=== PATIENT | male | born 1970 | race African-American/Black ===

== ENCOUNTER 2020-11-06 14:15 | Inpatient (IN) | payer SELFPAY ==
[2020-11-06] MEDS ORDERED: Acetaminophen 500 MG TAB ONE (14:54)
[2020-11-06] MEDS ORDERED: Ondansetron ODT 4 MG TAB ONE (14:54)
[2020-11-06 15:30] LABS: #Basophils 0.1 10x3/uL (0.0-0.2); #Monocytes 0.7 10x3/uL (0.0-1.1); #Neutrophils 10.7 10x3/uL (1.5-8.4); %Basophils 0.4 % (0.0-2.0); %Eosinophils 0.1 % (0.0-6.0); %Monocytes 5.1 % (0.0-10.0); %Neutrophils 80.2 % (40.0-75.0); Hemoglobin 12.2 g/dL (13.5-17.5); Mean Corpuscular HGB CONC 36.7 g/dL (32.0-36.0); Mean Corpuscular Hemoglobin 28.4 pg (27.0-33.0); Mean Corpuscular Volume 77.2 fl (81.2-95.1); Platelet Count 317 10x3/uL (150-450); White Blood Cell (WBC) Count 13.4 10x3/uL (3.5-10.5)
[2020-11-06 15:46] LABS: ALT (SGPT) 11 U/L (8-55); AST (SGOT) 21 U/L (5-34); Albumin 3.6 g/dL (3.5-5.0); Alkaline Phosphatase 52 U/L (40-110); Anion Gap 24 mmol/L (10-20); BUN (Urea Nitrogen) 23 mg/dL (8.4-25.7); Bilirubin, Total 1.4 mg/dL (0.2-1.2); Calc. Creatinine Clearance 0 mL/min (70-130); Calcium 9.4 mg/dL (7.8-10.44); Carbon Dioxide 13 mmol/L (22-29); Chloride 75 mmol/L (98-107); Globulin 3.2 g/dL (2.4-3.5); Glucose 213 mg/dL (70-105); Potassium 5.8 mmol/L (3.5-5.1); Protein, Total 6.8 g/dL (6.0-8.3)
[2020-11-06 15:47] LABS: Sodium 106 mmol/L (136-145)
[2020-11-06] MEDS ORDERED: Senokot S 8.6-50 MG TAB PO PRN (17:27)
[2020-11-06] MEDS ORDERED: Ondansetron PF 4 MG/2 ML Vial IVP PRN (17:27)
[2020-11-06 18:03] LABS: CRP (Inflammatory) 9.26 mg/dL (= or < 0.5); Uric Acid 7.7 mg/dL (3.5-7.2)
[2020-11-06 18:05] LABS: INR-International Normal Ratio 1.1; Prothrombin Time 12.1 sec (9.5-12.1)
[2020-11-06] MEDS ORDERED: Dextrose 50% Abboject 50 ML SYRINGE SLOW IVP PRN ×2 (18:13→18:14)
[2020-11-06] MEDS ORDERED: HumaLOG 300 UNITS/3 ML VIAL SC PRN (18:13)
[2020-11-06] MEDS ORDERED: Folic Acid 1 MG TAB PO SCH (18:15)
[2020-11-06] MEDS ORDERED: hydrALAZINE 20 MG/ML VIAL SLOW IVP PRN (18:25)
[2020-11-06] MEDS ORDERED: Thiamine 100 MG TAB PO SCH (18:45)
[2020-11-06 19:10] LABS: SARS-CoV-2 NAA Rapid Test Not Detected (NotDetected)
[2020-11-06 20:01] LABS: Actual Bicarbonate (HCO3a) 14.3 mEq/L (22-28); Base Excess (BEa) -6.3 mEq/L (-2.0 to +3.0); CO2 Tension 18.3 mmHg (35.0-45.0); Calcium, Ionized (arterial) 1.12 mmol/L (1.12-1.30); Carboxyhemoglobin (COHb) 0.3 gm% (0.0-3.0); Hemoglobin (Hb) 12.5 g/dL (14.0-18.0); O2 Tension (PaO2), arterial 86.6 mmHg (80.0-100.0); Potassium - ABG Lab 5.1 mmol/L (3.70-5.30); Puncture Site LBA; pH, Arterial 7.51 (7.35-7.45)
[2020-11-06 20:04] LABS: ALV-art Gradient 40.255 mmHg (0-20)
[2020-11-06] MEDS ORDERED: Sodium Chloride 3% 100 ML IVPB SCH (20:15)
[2020-11-06 21:01] LABS: Anion Gap 25 mmol/L (10-20); BUN (Urea Nitrogen) 24 mg/dL (8.4-25.7); Calc. Creatinine Clearance 63 mL/min (70-130); Calcium 9.6 mg/dL (7.8-10.44); Carbon Dioxide 11 mmol/L (22-29); Chloride 78 mmol/L (98-107); Glucose 191 mg/dL (70-105); Potassium 5.3 mmol/L (3.5-5.1)
[2020-11-06 21:27] LABS: Sodium 109 mmol/L (136-145)
[2020-11-06] MEDS ORDERED: Sodium Chloride 0.9% 250 ML IV SCH (22:00)
[2020-11-06 22:10] LABS: Anion Gap 26 mmol/L (10-20); BUN (Urea Nitrogen) 24 mg/dL (8.4-25.7); Calc. Creatinine Clearance 65 mL/min (70-130); Calcium 9.5 mg/dL (7.8-10.44); Carbon Dioxide 10 mmol/L (22-29); Chloride 77 mmol/L (98-107); Glucose 187 mg/dL (70-105); Potassium 5.1 mmol/L (3.5-5.1)
[2020-11-06 22:23] LABS: Sodium 108 mmol/L (136-145)
[2020-11-06] MEDS: Lorazepam 2 MG/ML VIAL SLOW IVP PRN (22:23)
[2020-11-06] MEDS ORDERED: Sodium Bicarbonate Tab 325 MG TAB PO SCH (23:00)
[2020-11-06 23:01] LABS: Bilirubin Neg (Negative); Blood, Urine Negative (Negative); Clarity Clear (Clear); Glucose, Urine (Dipstick) Normal (Negative); Ketone, Urine 15 mg/dL (Negative); Leukocyte 25 (Negative); Nitrite Negative (Negative); Protein, Urine (Dipstick) Negative (Neg-Trace)
[2020-11-06 23:33] LABS: Bacteria/HPF Rare-Few HPF (None Seen); RBC/HPF 0-3 HPF (0-3); WBC/HPF 0-3 HPF (0-3)
[2020-11-06 23:36] LABS: Mucous/LPF 2+ LPF (<2+)
[2020-11-07 00:49] LABS: Anion Gap 22 mmol/L (10-20); BUN (Urea Nitrogen) 27 mg/dL (8.4-25.7); Calc. Creatinine Clearance 62 mL/min (70-130); Calcium 9.4 mg/dL (7.8-10.44); Carbon Dioxide 13 mmol/L (22-29); Chloride 80 mmol/L (98-107); Glucose 121 mg/dL (70-105); Potassium 4.9 mmol/L (3.5-5.1)
[2020-11-07 00:56] LABS: Critical Call Chemistry INCREASING; Sodium 110 mmol/L (136-145)
[2020-11-07 04:49] LABS: #Monocytes 0.7 10x3/uL (0.0-1.1); #Neutrophils 8.8 10x3/uL (1.5-8.4); %Basophils 0.3 % (0.0-2.0); %Eosinophils 0.2 % (0.0-6.0); %Lymphocytes 17.4 % (18.0-47.0); %Monocytes 5.7 % (0.0-10.0); %Neutrophils 75.2 % (40.0-75.0); Mean Corpuscular HGB CONC 35.9 g/dL (32.0-36.0); Mean Corpuscular Hemoglobin 28.5 pg (27.0-33.0); Mean Corpuscular Volume 79.3 fl (81.2-95.1); Mean Platelet Volume 9.5 fl (7.4-10.4); Platelet Count 273 10x3/uL (150-450); RBC Distribution Width 14.7 % (11.5-14.5); Red Blood Cell (RBC) Count 4.21 10x6/uL (4.32-5.72); White Blood Cell (WBC) Count 11.7 10x3/uL (3.5-10.5)
[2020-11-07 05:10] LABS: ALT (SGPT) 10 U/L (8-55); AST (SGOT) 24 U/L (5-34); Albumin 3.7 g/dL (3.5-5.0); Alkaline Phosphatase 49 U/L (40-110); Anion Gap 21 mmol/L (10-20); BUN (Urea Nitrogen) 28 mg/dL (8.4-25.7); Bilirubin, Direct 0.5 mg/dL (0.1-0.3); Bilirubin, Total 1.1 mg/dL (0.2-1.2); CRP (Inflammatory) 9.21 mg/dL (= or < 0.5); Calc. Creatinine Clearance 69 mL/min (70-130); Calcium 9.7 mg/dL (7.8-10.44); Carbon Dioxide 16 mmol/L (22-29); Cardiac Risk 3.6 (Less than 4.5); Chloride 79 mmol/L (98-107); Cholesterol 156 mg/dl (< 200 Desired); Globulin 3.8 g/dL (2.4-3.5); Glucose 89 mg/dL (70-105); HDL Cholesterol 43 mg/dL (>60 Neg Risk); LDL Cholesterol, Calculated 89 mg/dL; Lipase 19 U/L (8-78); Phosphorus 5.6 mg/dL (2.3-4.7); Potassium 4.6 mmol/L (3.5-5.1); Protein, Total 7.5 g/dL (6.0-8.3); Triglycerides 118 mg/dL (Less than 150)
[2020-11-07 05:16] LABS: Prothrombin Time 11.5 sec (9.5-12.1)
[2020-11-07 05:23] LABS: Sodium 111 mmol/L (136-145)
[2020-11-07 05:33] LABS: Thyroid Stimulating Hormone 2.7571 uIU/mL (0.35-4.94)
[2020-11-07] MEDS: Folic Acid 1 MG TAB PO SCH (08:58)
[2020-11-07] MEDS: Sodium Bicarbonate Tab 325 MG TAB PO SCH ×3 (08:59→20:19)
[2020-11-07] MEDS: Thiamine 100 MG TAB PO SCH (09:00)
[2020-11-07 10:58] LABS: Anion Gap 19 mmol/L (10-20); BUN (Urea Nitrogen) 28 mg/dL (8.4-25.7); Calc. Creatinine Clearance 86 mL/min (70-130); Calcium 9.3 mg/dL (7.8-10.44); Carbon Dioxide 17 mmol/L (22-29); Chloride 81 mmol/L (98-107); Glucose 74 mg/dL (70-105); Potassium 4.4 mmol/L (3.5-5.1)
[2020-11-07 11:10] LABS: Sodium 113 mmol/L (136-145)
[2020-11-07 14:56] LABS: Anion Gap 17 mmol/L (10-20); BUN (Urea Nitrogen) 27 mg/dL (8.4-25.7); Calc. Creatinine Clearance 98 mL/min (70-130); Calcium 9.1 mg/dL (7.8-10.44); Carbon Dioxide 18 mmol/L (22-29); Chloride 80 mmol/L (98-107); Glucose 78 mg/dL (70-105); Potassium 4.2 mmol/L (3.5-5.1)
[2020-11-07 15:09] LABS: Sodium 111 mmol/L (136-145)
[2020-11-07 18:30] LABS: Anion Gap 16 mmol/L (10-20); BUN (Urea Nitrogen) 25 mg/dL (8.4-25.7); Calc. Creatinine Clearance 112 mL/min (70-130); Calcium 8.9 mg/dL (7.8-10.44); Carbon Dioxide 20 mmol/L (22-29); Chloride 79 mmol/L (98-107); Glucose 77 mg/dL (70-105); Potassium 3.9 mmol/L (3.5-5.1)
[2020-11-07 18:48] LABS: Sodium 111 mmol/L (136-145)
[2020-11-07 22:30] LABS: Anion Gap 16 mmol/L (10-20); BUN (Urea Nitrogen) 23 mg/dL (8.4-25.7); Calc. Creatinine Clearance 119 mL/min (70-130); Calcium 8.8 mg/dL (7.8-10.44); Carbon Dioxide 20 mmol/L (22-29); Chloride 80 mmol/L (98-107); Glucose 107 mg/dL (70-105); Potassium 3.5 mmol/L (3.5-5.1)
[2020-11-07 23:22] LABS: Sodium 112 mmol/L (136-145)
[2020-11-08 04:36] LABS: #Eosinphils 0.1 10x3/uL (0.0-0.5); #Monocytes 0.5 10x3/uL (0.0-1.1); #Neutrophils 4.9 10x3/uL (1.5-8.4); %Basophils 0.3 % (0.0-2.0); %Eosinophils 0.8 % (0.0-6.0); %Monocytes 6.2 % (0.0-10.0); %Neutrophils 67.5 % (40.0-75.0); Hemoglobin 8.7 g/dL (13.5-17.5); Mean Corpuscular HGB CONC 35.8 g/dL (32.0-36.0); Mean Corpuscular Hemoglobin 28.5 pg (27.0-33.0); Mean Corpuscular Volume 79.7 fl (81.2-95.1); Mean Platelet Volume 9.2 fl (7.4-10.4); Platelet Count 226 10x3/uL (150-450); RBC Distribution Width 14.3 % (11.5-14.5); Red Blood Cell (RBC) Count 3.05 10x6/uL (4.32-5.72); White Blood Cell (WBC) Count 7.2 10x3/uL (3.5-10.5)
[2020-11-08 04:38] LABS: Anion Gap 15 mmol/L (10-20); BUN (Urea Nitrogen) 19 mg/dL (8.4-25.7); Calc. Creatinine Clearance 134 mL/min (70-130); Calcium 8.8 mg/dL (7.8-10.44); Carbon Dioxide 21 mmol/L (22-29); Chloride 82 mmol/L (98-107); Glucose 85 mg/dL (70-105); Potassium 3.6 mmol/L (3.5-5.1)
[2020-11-08 04:45] LABS: Sodium 114 mmol/L (136-145)
[2020-11-08 07:27] LABS: Anion Gap 15 mmol/L (10-20); BUN (Urea Nitrogen) 17 mg/dL (8.4-25.7); Calc. Creatinine Clearance 149 mL/min (70-130); Calcium 8.6 mg/dL (7.8-10.44); Carbon Dioxide 20 mmol/L (22-29); Chloride 84 mmol/L (98-107); Glucose 76 mg/dL (70-105); Potassium 3.6 mmol/L (3.5-5.1)
[2020-11-08 07:43] LABS: Sodium 115 mmol/L (136-145)
[2020-11-08] MEDS: Folic Acid 1 MG TAB PO SCH (08:43)
[2020-11-08] MEDS: Thiamine 100 MG TAB PO SCH (08:43)
[2020-11-08] MEDS: Sodium Bicarbonate Tab 325 MG TAB PO SCH ×3 (08:43→20:32)
[2020-11-08 13:39] LABS: Anion Gap 14 mmol/L (10-20); BUN (Urea Nitrogen) 15 mg/dL (8.4-25.7); Calc. Creatinine Clearance 156 mL/min (70-130); Calcium 8.9 mg/dL (7.8-10.44); Carbon Dioxide 23 mmol/L (22-29); Chloride 85 mmol/L (98-107); Glucose 96 mg/dL (70-105); Potassium 3.6 mmol/L (3.5-5.1)
[2020-11-08 13:42] LABS: Sodium 118 mmol/L (136-145)
[2020-11-08 16:50] LABS: Anion Gap 16 mmol/L (10-20); BUN (Urea Nitrogen) 14 mg/dL (8.4-25.7); Calc. Creatinine Clearance 153 mL/min (70-130); Calcium 8.8 mg/dL (7.8-10.44); Carbon Dioxide 21 mmol/L (22-29); Chloride 85 mmol/L (98-107); Glucose 95 mg/dL (70-105); Potassium 3.7 mmol/L (3.5-5.1)
[2020-11-08 16:58] LABS: Sodium 118 mmol/L (136-145)
[2020-11-08] MEDS: Acetaminophen 500 MG TAB PO PRN (17:06)
[2020-11-08 21:09] LABS: Anion Gap 14 mmol/L (10-20); BUN (Urea Nitrogen) 12 mg/dL (8.4-25.7); Calc. Creatinine Clearance 158 mL/min (70-130); Calcium 8.9 mg/dL (7.8-10.44); Carbon Dioxide 24 mmol/L (22-29); Chloride 86 mmol/L (98-107); Glucose 99 mg/dL (70-105); Potassium 3.7 mmol/L (3.5-5.1); Sodium 120 mmol/L (136-145)
[2020-11-09 01:16] LABS: Anion Gap 14 mmol/L (10-20); BUN (Urea Nitrogen) 11 mg/dL (8.4-25.7); Calc. Creatinine Clearance 157 mL/min (70-130); Calcium 8.9 mg/dL (7.8-10.44); Carbon Dioxide 23 mmol/L (22-29); Chloride 88 mmol/L (98-107); Glucose 101 mg/dL (70-105); Potassium 3.6 mmol/L (3.5-5.1); Sodium 121 mmol/L (136-145)
[2020-11-09 04:32] LABS: #Eosinphils 0.1 10x3/uL (0.0-0.5); #Monocytes 0.5 10x3/uL (0.0-1.1); #Neutrophils 3.5 10x3/uL (1.5-8.4); %Basophils 0.5 % (0.0-2.0); %Eosinophils 1.5 % (0.0-6.0); %Lymphocytes 29.7 % (18.0-47.0); %Monocytes 7.7 % (0.0-10.0); %Neutrophils 57.6 % (40.0-75.0); Hemoglobin 8.2 g/dL (13.5-17.5); Mean Corpuscular Hemoglobin 29.1 pg (27.0-33.0); Mean Corpuscular Volume 80.9 fl (81.2-95.1); Mean Platelet Volume 8.8 fl (7.4-10.4); Platelet Count 248 10x3/uL (150-450); RBC Distribution Width 14.3 % (11.5-14.5); Red Blood Cell (RBC) Count 2.82 10x6/uL (4.32-5.72); White Blood Cell (WBC) Count 6.1 10x3/uL (3.5-10.5)
[2020-11-09 04:46] LABS: Anion Gap 13 mmol/L (10-20); BUN (Urea Nitrogen) 11 mg/dL (8.4-25.7); Calc. Creatinine Clearance 177 mL/min (70-130); Calcium 8.6 mg/dL (7.8-10.44); Carbon Dioxide 23 mmol/L (22-29); Chloride 88 mmol/L (98-107); Glucose 90 mg/dL (70-105); Potassium 3.3 mmol/L (3.5-5.1); Sodium 121 mmol/L (136-145)
[2020-11-09] MEDS: Acetaminophen 500 MG TAB PO PRN ×3 (06:01→18:03)
[2020-11-09] MEDS: Sodium Bicarbonate Tab 325 MG TAB PO SCH ×3 (08:02→20:16)
[2020-11-09] MEDS: Folic Acid 1 MG TAB PO SCH (08:02)
[2020-11-09] MEDS: Thiamine 100 MG TAB PO SCH (08:02)
[2020-11-09 09:00] LABS: Anion Gap 15 mmol/L (10-20); BUN (Urea Nitrogen) 9 mg/dL (8.4-25.7); Calc. Creatinine Clearance 171 mL/min (70-130); Carbon Dioxide 22 mmol/L (22-29); Chloride 89 mmol/L (98-107); Glucose 98 mg/dL (70-105); Potassium 3.4 mmol/L (3.5-5.1); Sodium 123 mmol/L (136-145)
[2020-11-09 12:07] LABS: Anion Gap 14 mmol/L (10-20); BUN (Urea Nitrogen) 10 mg/dL (8.4-25.7); Calc. Creatinine Clearance 159 mL/min (70-130); Carbon Dioxide 23 mmol/L (22-29); Chloride 89 mmol/L (98-107); Glucose 97 mg/dL (70-105); Potassium 3.2 mmol/L (3.5-5.1); Sodium 123 mmol/L (136-145)
[2020-11-09] MEDS ORDERED: Potassium Chloride 20 MEQ TAB PO SCH (13:15)
[2020-11-09 16:38] LABS: Anion Gap 16 mmol/L (10-20); BUN (Urea Nitrogen) 11 mg/dL (8.4-25.7); Calc. Creatinine Clearance 164 mL/min (70-130); Calcium 8.9 mg/dL (7.8-10.44); Carbon Dioxide 22 mmol/L (22-29); Chloride 90 mmol/L (98-107); Glucose 80 mg/dL (70-105); Potassium 3.6 mmol/L (3.5-5.1); Sodium 124 mmol/L (136-145)
[2020-11-09 21:32] LABS: Anion Gap 15 mmol/L (10-20); BUN (Urea Nitrogen) 10 mg/dL (8.4-25.7); Calc. Creatinine Clearance 146 mL/min (70-130); Calcium 8.7 mg/dL (7.8-10.44); Carbon Dioxide 24 mmol/L (22-29); Chloride 91 mmol/L (98-107); Glucose 116 mg/dL (70-105); Potassium 3.5 mmol/L (3.5-5.1); Sodium 126 mmol/L (136-145)
[2020-11-10] MEDS ORDERED: Melatonin 3 MG TAB PO SCH (01:15)
[2020-11-10 05:56] LABS: Anion Gap 18 mmol/L (10-20); BUN (Urea Nitrogen) 8 mg/dL (8.4-25.7); Calc. Creatinine Clearance 161 mL/min (70-130); Calcium 9.2 mg/dL (7.8-10.44); Carbon Dioxide 21 mmol/L (22-29); Chloride 92 mmol/L (98-107); Glucose 89 mg/dL (70-105); Potassium 3.5 mmol/L (3.5-5.1); Sodium 127 mmol/L (136-145)
[2020-11-10] MEDS: Acetaminophen 500 MG TAB PO PRN ×2 (06:05→22:49)
[2020-11-10 06:18] LABS: Hemoglobin 8.8 g/dL (13.5-17.5); Mean Corpuscular HGB CONC 34.9 g/dL (32.0-36.0); Mean Corpuscular Hemoglobin 28.6 pg (27.0-33.0); Mean Corpuscular Volume 81.8 fl (81.2-95.1); Mean Platelet Volume 8.6 fl (7.4-10.4); Platelet Count 300 10x3/uL (150-450); RBC Distribution Width 14.8 % (11.5-14.5); Red Blood Cell (RBC) Count 3.08 10x6/uL (4.32-5.72); White Blood Cell (WBC) Count 7.9 10x3/uL (3.5-10.5)
[2020-11-10 06:55] LABS: Band 6 % (5-11); Eosinophils 1 % (0-10); Lymphocytes 21 % (21-51); Metamyelocyte 4 % (0-0); Monocytes 3 % (0-10); Myelocyte 2 % (0-0); Neutrophil 60 % (42-75); Reactive Lymphocytes 2 % (0-10)
[2020-11-10 06:56] LABS: Anisocytosis SLIGHT = 6-15 cells (100X) (0-5/hpf)
[2020-11-10 06:57] LABS: Hypochromia SLIGHT = 6-15 cells (100X) (0-5/hpf); Microcytosis MODERATE=15-30 cells (100X) (0-5/hpf); Platelet Morphology Comment Appears Adequate
[2020-11-10 06:58] LABS: MDiff Complete? YES; Manual Diff?? YES; Small Platelets SLIGHT
[2020-11-10] MEDS: Lorazepam 2 MG/ML VIAL SLOW IVP PRN (10:05)
[2020-11-10] MEDS: Folic Acid 1 MG TAB PO SCH (18:42)
[2020-11-10] MEDS: Sodium Bicarbonate Tab 325 MG TAB PO SCH ×3 (18:42→21:43)
[2020-11-10] MEDS: Thiamine 100 MG TAB PO SCH (18:43)
[2020-11-11 06:57] LABS: Anion Gap 15 mmol/L (10-20); BUN (Urea Nitrogen) 7 mg/dL (8.4-25.7); Calc. Creatinine Clearance 167 mL/min (70-130); Calcium 9.4 mg/dL (7.8-10.44); Carbon Dioxide 22 mmol/L (22-29); Chloride 94 mmol/L (98-107); Glucose 85 mg/dL (70-105); Potassium 3.3 mmol/L (3.5-5.1); Sodium 128 mmol/L (136-145)
[2020-11-11 07:25] LABS: Hemoglobin 8.7 g/dL (13.5-17.5); Mean Corpuscular Hemoglobin 27.9 pg (27.0-33.0); Mean Corpuscular Volume 82.1 fl (81.2-95.1); Platelet Count 352 10x3/uL (150-450); RBC Distribution Width 15.9 % (11.5-14.5); Red Blood Cell (RBC) Count 3.12 10x6/uL (4.32-5.72); White Blood Cell (WBC) Count 8.6 10x3/uL (3.5-10.5)
[2020-11-11 07:27] LABS: MDiff Complete? YES
[2020-11-11 08:08] LABS: Band 1 % (5-11); Eosinophils 1 % (0-10); Lymphocytes 34 % (21-51); Monocytes 7 % (0-10); Neutrophil 57 % (42-75)
[2020-11-11 08:09] LABS: Platelet Morphology Comment Appears Adequate
[2020-11-11] MEDS ORDERED: Potassium Chloride 20 MEQ TAB PO SCH (08:30)
[2020-11-11] MEDS: Acetaminophen 500 MG TAB PO PRN ×3 (08:39→21:24)
[2020-11-11] MEDS: Folic Acid 1 MG TAB PO SCH (08:40)
[2020-11-11] MEDS: Sodium Bicarbonate Tab 325 MG TAB PO SCH ×3 (08:40→21:23)
[2020-11-11] MEDS: Thiamine 100 MG TAB PO SCH (08:40)
[2020-11-11 13:41] LABS: Anion Gap 15 mmol/L (10-20); BUN (Urea Nitrogen) 7 mg/dL (8.4-25.7); Calc. Creatinine Clearance 146 mL/min (70-130); Calcium 9.5 mg/dL (7.8-10.44); Carbon Dioxide 24 mmol/L (22-29); Chloride 92 mmol/L (98-107); Glucose 110 mg/dL (70-105); Potassium 3.4 mmol/L (3.5-5.1); Sodium 128 mmol/L (136-145)
[2020-11-11 17:37] LABS: Anion Gap 14 mmol/L (10-20); BUN (Urea Nitrogen) 8 mg/dL (8.4-25.7); Calc. Creatinine Clearance 150 mL/min (70-130); Carbon Dioxide 22 mmol/L (22-29); Chloride 96 mmol/L (98-107); Glucose 99 mg/dL (70-105); Potassium 3.8 mmol/L (3.5-5.1); Sodium 128 mmol/L (136-145)
[2020-11-11 21:09] LABS: Anion Gap 14 mmol/L (10-20); BUN (Urea Nitrogen) 8 mg/dL (8.4-25.7); Calc. Creatinine Clearance 155 mL/min (70-130); Carbon Dioxide 23 mmol/L (22-29); Chloride 97 mmol/L (98-107); Glucose 96 mg/dL (70-105); Potassium 3.9 mmol/L (3.5-5.1); Sodium 130 mmol/L (136-145)
[2020-11-12 05:34] LABS: #Eosinphils 0.1 10x3/uL (0.0-0.5); #Monocytes 0.6 10x3/uL (0.0-1.1); #Neutrophils 3.8 10x3/uL (1.5-8.4); %Basophils 0.5 % (0.0-2.0); %Eosinophils 0.8 % (0.0-6.0); %Monocytes 10.4 % (0.0-10.0); %Neutrophils 63.5 % (40.0-75.0); Mean Corpuscular HGB CONC 34.6 g/dL (32.0-36.0); Mean Corpuscular Hemoglobin 28.4 pg (27.0-33.0); Mean Corpuscular Volume 81.9 fl (81.2-95.1); Mean Platelet Volume 8.5 fl (7.4-10.4); Platelet Count 277 10x3/uL (150-450); Red Blood Cell (RBC) Count 2.82 10x6/uL (4.32-5.72); White Blood Cell (WBC) Count 6.1 10x3/uL (3.5-10.5)
[2020-11-12 05:49] LABS: Anion Gap 16 mmol/L (10-20); BUN (Urea Nitrogen) 7 mg/dL (8.4-25.7); Calc. Creatinine Clearance 164 mL/min (70-130); Calcium 9.1 mg/dL (7.8-10.44); Carbon Dioxide 21 mmol/L (22-29); Chloride 98 mmol/L (98-107); Glucose 90 mg/dL (70-105); Potassium 3.6 mmol/L (3.5-5.1); Sodium 131 mmol/L (136-145)
[2020-11-12 05:56] VITALS: BMI 28.5
[2020-11-12] MEDS: Acetaminophen 500 MG TAB PO PRN ×3 (08:36→20:24)
[2020-11-12] MEDS: Sodium Bicarbonate Tab 325 MG TAB PO SCH ×3 (08:36→20:23)
[2020-11-12] MEDS: Thiamine 100 MG TAB PO SCH (08:37)
[2020-11-12] MEDS: Folic Acid 1 MG TAB PO SCH (08:37)
[2020-11-12] MEDS: Lorazepam 2 MG/ML VIAL SLOW IVP PRN (20:25)
[2020-11-13] MEDS: Acetaminophen 500 MG TAB PO PRN ×3 (01:58→15:43)
[2020-11-13 06:24] LABS: Anion Gap 14 mmol/L (10-20); BUN (Urea Nitrogen) 6 mg/dL (8.4-25.7); Calc. Creatinine Clearance 172 mL/min (70-130); Calcium 8.9 mg/dL (7.8-10.44); Carbon Dioxide 21 mmol/L (22-29); Chloride 98 mmol/L (98-107); Glucose 105 mg/dL (70-105); Potassium 3.4 mmol/L (3.5-5.1); Sodium 130 mmol/L (136-145)
[2020-11-13] MEDS: Thiamine 100 MG TAB PO SCH (09:11)
[2020-11-13] MEDS: Sodium Bicarbonate Tab 325 MG TAB PO SCH ×2 (09:11→15:43)
[2020-11-13] MEDS: Folic Acid 1 MG TAB PO SCH (09:11)
[2020-11-13 15:50] VITALS: BP 178/85; TEMP 99.3
== END 2020-11-13 16:00 | disposition home or self-care (01) | DRG 643 ==
LOC: CSHERS 14:15 → CSHICU 18:38 → CSHTELE 11-09 16:19
PROVIDERS: ADMIT Family Medicine; ATTEND Hospitalist
DX: E22.2 Syndrome of inappropriate secretion of antidiuretic hormone (principal); E43 Unspecified severe protein-calorie malnutrition; N17.9 Acute kidney failure, unspecified; R18.8 Other ascites; E87.2 Acidosis; K70.9 Alcoholic liver disease, unspecified; Z20.822 Contact with and (suspected) exposure to COVID-19; I10 Essential (primary) hypertension; M54.9 Dorsalgia, unspecified; E87.5 Hyperkalemia; F10.10 Alcohol abuse, uncomplicated; Z79.899 Other long term (current) drug therapy; Z87.820 Personal history of traumatic brain injury; Z68.28 Body mass index [BMI] 28.0-28.9, adult; G89.29 Other chronic pain; E86.0 Dehydration; R14.0 Abdominal distension (gaseous); E87.6 Hypokalemia
CPT/HCPCS: 0240U; 36415; 36416; 36600; 71045; 76705; 80048; 80053; 80061; 80076; 81003; 81015; 82533; 82607; 82746; 82805; 83036; 83605; 83690; 83735; 83880; 83930; 83935; 84100; 84300; 84443; 84484; 84550; 85025; 85610; 86140; 93005; 93306; 94760; J1610; J1815; J2060; J2597; Q0162

== ENCOUNTER 2020-11-19 19:01 | Inpatient (IN) | payer SELFPAY ==
[2020-11-19] MEDS ORDERED: Labetalol HCl 100 MG/20 ML VIAL ONE (19:40)
[2020-11-19 19:47] LABS: #Eosinphils 0.1 10x3/uL (0.0-0.5); #Monocytes 0.6 10x3/uL (0.0-1.1); #Neutrophils 8.2 10x3/uL (1.5-8.4); %Basophils 0.3 % (0.0-2.0); %Eosinophils 0.6 % (0.0-6.0); %Lymphocytes 16.8 % (18.0-47.0); %Monocytes 5.1 % (0.0-10.0); %Neutrophils 76.7 % (40.0-75.0); Hemoglobin 10.4 g/dL (13.5-17.5); Mean Corpuscular HGB CONC 34.8 g/dL (32.0-36.0); Mean Corpuscular Hemoglobin 27.7 pg (27.0-33.0); Mean Corpuscular Volume 79.5 fl (81.2-95.1); Mean Platelet Volume 8.7 fl (7.4-10.4); Platelet Count 396 10x3/uL (150-450); RBC Distribution Width 15.1 % (11.5-14.5); Red Blood Cell (RBC) Count 3.76 10x6/uL (4.32-5.72); White Blood Cell (WBC) Count 10.7 10x3/uL (3.5-10.5)
[2020-11-19 19:55] LABS: Acetaminophen Less than 6.0 mcg/mL (10.0-30.0); Alcohol Less than 10 mg/dL (Less than 10); Salicylate Less than 8.0 mg/dL (15.0-30.0)
[2020-11-19 19:57] LABS: ALT (SGPT) 18 U/L (8-55); AST (SGOT) 21 U/L (5-34); Albumin 4.1 g/dL (3.5-5.0); Alkaline Phosphatase 56 U/L (40-110); Anion Gap 17 mmol/L (10-20); BUN (Urea Nitrogen) 5 mg/dL (8.4-25.7); Bilirubin, Total 0.9 mg/dL (0.2-1.2); Calc. Creatinine Clearance 0 mL/min (70-130); Calcium 9.7 mg/dL (7.8-10.44); Carbon Dioxide 19 mmol/L (22-29); Chloride 88 mmol/L (98-107); Globulin 4.1 g/dL (2.4-3.5); Glucose 105 mg/dL (70-105); Lipase 25 U/L (8-78); Potassium 3.4 mmol/L (3.5-5.1); Protein, Total 8.2 g/dL (6.0-8.3); Sodium 121 mmol/L (136-145)
[2020-11-19] MEDS ORDERED: Ondansetron PF 4 MG/2 ML Vial IVP PRN (20:37)
[2020-11-19] MEDS ORDERED: Calcium Carbonate 500 MG ChewTAB PO PRN (20:37)
[2020-11-19] MEDS ORDERED: Potassium Chloride 20 MEQ TAB PO SCH (20:45)
[2020-11-19 21:00] LABS: Bilirubin 1+ (Negative); Blood, Urine Negative (Negative); Clarity Clear (Clear); Glucose, Urine (Dipstick) Normal (Negative); Ketone, Urine 50 mg/dL (Negative); Leukocyte 25 (Negative); Nitrite Negative (Negative); Protein, Urine (Dipstick) 30 mg/dl (Neg-Trace)
[2020-11-19 21:08] LABS: Amphetamine Not Detected (NotDetected); Barbiturates Screen Not Detected (NotDetected); Benzodiazepine Screen Not Detected (NotDetected); Cocaine Metabolite Screen Not Detected (NotDetected); Methadone Not Detected (NotDetected); Methamphetamine Not Detected (NotDetected); Opiate Screen Detected (NotDetected); Oxycodone Screen Not Detected (NotDetected); Phencyclidine (PCP) Not Detected (NotDetected); THC/Cannabinoid Screen Not Detected (NotDetected); Tricyclic Screen Not Detected (NotDetected)
[2020-11-19 21:11] LABS: Bacteria/HPF Rare-Few HPF (None Seen); Mucous/LPF Few LPF (<2+); RBC/HPF 0-3 HPF (0-3); Transitional Epithelial 0-3 HPF (None Seen); WBC/HPF 0-3 HPF (0-3)
[2020-11-19 23:11] VITALS: BMI 26.5
[2020-11-19 23:33] LABS: Anion Gap 16 mmol/L (10-20); BUN (Urea Nitrogen) 5 mg/dL (8.4-25.7); Calc. Creatinine Clearance 152 mL/min (70-130); Calcium 9.3 mg/dL (7.8-10.44); Carbon Dioxide 18 mmol/L (22-29); Chloride 91 mmol/L (98-107); Glucose 99 mg/dL (70-105); Potassium 3.2 mmol/L (3.5-5.1); Sodium 122 mmol/L (136-145)
[2020-11-20] MEDS: Sodium Chloride 1 GM TAB PO SCH ×4 (01:12→21:21)
[2020-11-20 01:49] LABS: Creatinine, Urine 202.55 mg/dL (63-166)
[2020-11-20] MEDS: Acetaminophen 325 MG TAB PO PRN ×2 (02:25→07:52)
[2020-11-20 04:33] LABS: ALT (SGPT) 15 U/L (8-55); AST (SGOT) 18 U/L (5-34); Albumin 3.8 g/dL (3.5-5.0); Alkaline Phosphatase 52 U/L (40-110); Anion Gap 16 mmol/L (10-20); BUN (Urea Nitrogen) 5 mg/dL (8.4-25.7); Calc. Creatinine Clearance 152 mL/min (70-130); Calcium 9.4 mg/dL (7.8-10.44); Carbon Dioxide 19 mmol/L (22-29); Chloride 91 mmol/L (98-107); Globulin 3.7 g/dL (2.4-3.5); Glucose 97 mg/dL (70-105); Magnesium 1.3 mg/dL (1.6-2.6); Phosphorus 3.4 mg/dL (2.3-4.7); Potassium 3.6 mmol/L (3.5-5.1); Protein, Total 7.5 g/dL (6.0-8.3); Sodium 122 mmol/L (136-145)
[2020-11-20 04:38] LABS: #Eosinphils 0.1 10x3/uL (0.0-0.5); #Monocytes 0.6 10x3/uL (0.0-1.1); #Neutrophils 6.8 10x3/uL (1.5-8.4); %Basophils 0.3 % (0.0-2.0); %Eosinophils 0.8 % (0.0-6.0); %Lymphocytes 19.8 % (18.0-47.0); %Monocytes 6.1 % (0.0-10.0); %Neutrophils 72.6 % (40.0-75.0); Hemoglobin 9.8 g/dL (13.5-17.5); Mean Corpuscular HGB CONC 35.4 g/dL (32.0-36.0); Mean Corpuscular Hemoglobin 28.5 pg (27.0-33.0); Mean Corpuscular Volume 80.5 fl (81.2-95.1); Mean Platelet Volume 9.3 fl (7.4-10.4); Platelet Count 390 10x3/uL (150-450); RBC Distribution Width 15.1 % (11.5-14.5); Red Blood Cell (RBC) Count 3.44 10x6/uL (4.32-5.72); White Blood Cell (WBC) Count 9.3 10x3/uL (3.5-10.5)
[2020-11-20] MEDS ORDERED: Sodium Chloride 0.65% Nasal 44 ML BOT EA NARE PRN (07:27)
[2020-11-20] MEDS ORDERED: Eucerin (Mineral Oil/Petrolatum,White) 30 gm Jar TOP PRN (07:27)
[2020-11-20] MEDS ORDERED: Senokot S 8.6-50 MG TAB PO PRN (07:27)
[2020-11-20] MEDS ORDERED: Loperamide HCl 2 MG CAP PO PRN (07:27)
[2020-11-20] MEDS ORDERED: Cepastat Lozenges 1 LOZ PO PRN (07:27)
[2020-11-20] MEDS ORDERED: hydrALAZINE 20 MG/ML VIAL SLOW IVP PRN (07:27)
[2020-11-20] MEDS ORDERED: Bisacodyl 5 MG TAB PO PRN (07:27)
[2020-11-20] MEDS ORDERED: GUAIFENESIN SF SOLN 200 MG/10 ML UDCUP PO PRN (07:27)
[2020-11-20] MEDS ORDERED: Loratadine 10 MG TAB PO PRN (07:27)
[2020-11-20] MEDS: Amlodipine 5 MG TAB PO SCH (07:51)
[2020-11-20] MEDS: Multivitamin W/ Minerals 1 TAB PO SCH (07:52)
[2020-11-20] MEDS: Thiamine 100 MG TAB PO SCH (07:52)
[2020-11-20] MEDS: Folic Acid 1 MG TAB PO SCH (07:52)
[2020-11-20] MEDS: Enoxaparin Sodium 40 MG/0.4 ML SYRINGE SC SCH (07:52)
[2020-11-20] MEDS ORDERED: Magnesium 2 GM/50 ML 2 GM in Premix Bag 1 BAG IVPB SCH (08:30)
[2020-11-20 09:04] LABS: Sodium 124 mmol/L (136-145)
[2020-11-20] MEDS: Lorazepam 0.5 MG TAB PO PRN (12:53)
[2020-11-20 13:19] LABS: Sodium 123 mmol/L (136-145)
[2020-11-20 17:18] LABS: Sodium 123 mmol/L (136-145)
[2020-11-20 17:42] LABS: SARS-CoV-2 PCR by NAA Not Detected (NotDetected)
[2020-11-20 21:20] LABS: Sodium 123 mmol/L (136-145)
[2020-11-20] MEDS: Zolpidem Tartrate 5 MG TAB PO PRN (21:27)
[2020-11-21 05:46] LABS: ALT (SGPT) 13 U/L (8-55); AST (SGOT) 20 U/L (5-34); Albumin 3.6 g/dL (3.5-5.0); Alkaline Phosphatase 50 U/L (40-110); Anion Gap 14 mmol/L (10-20); BUN (Urea Nitrogen) Less than 4 mg/dL (8.4-25.7); Bilirubin, Total 0.7 mg/dL (0.2-1.2); Calc. Creatinine Clearance 163 mL/min (70-130); Calcium 8.7 mg/dL (7.8-10.44); Carbon Dioxide 18 mmol/L (22-29); Chloride 92 mmol/L (98-107); Globulin 3.4 g/dL (2.4-3.5); Glucose 84 mg/dL (70-105); Magnesium 1.6 mg/dL (1.6-2.6); Potassium 3.3 mmol/L (3.5-5.1); Sodium 121 mmol/L (136-145)
[2020-11-21 05:50] LABS: #Eosinphils 0.1 10x3/uL (0.0-0.5); #Monocytes 0.5 10x3/uL (0.0-1.1); #Neutrophils 5.7 10x3/uL (1.5-8.4); %Basophils 0.2 % (0.0-2.0); %Eosinophils 1.2 % (0.0-6.0); %Lymphocytes 20.7 % (18.0-47.0); %Monocytes 6.7 % (0.0-10.0); %Neutrophils 70.8 % (40.0-75.0); Hemoglobin 8.8 g/dL (13.5-17.5); Mean Corpuscular Hemoglobin 27.8 pg (27.0-33.0); Mean Platelet Volume 8.9 fl (7.4-10.4); Platelet Count 347 10x3/uL (150-450); RBC Distribution Width 14.8 % (11.5-14.5); Red Blood Cell (RBC) Count 3.16 10x6/uL (4.32-5.72); White Blood Cell (WBC) Count 8.1 10x3/uL (3.5-10.5)
[2020-11-21] MEDS: HYDROcodone/Acetaminophen 5/325 mg Tablet PO PRN ×3 (07:36→17:27)
[2020-11-21] MEDS: Amlodipine 5 MG TAB PO SCH (07:36)
[2020-11-21] MEDS: Folic Acid 1 MG TAB PO SCH (07:37)
[2020-11-21] MEDS: Multivitamin W/ Minerals 1 TAB PO SCH (07:37)
[2020-11-21] MEDS: Potassium Chloride 20 MEQ TAB PO SCH ×2 (07:37→15:29)
[2020-11-21] MEDS: Enoxaparin Sodium 40 MG/0.4 ML SYRINGE SC SCH (07:38)
[2020-11-21] MEDS: Lorazepam 0.5 MG TAB PO PRN (07:38)
[2020-11-21] MEDS: Thiamine 100 MG TAB PO SCH (07:38)
[2020-11-21] MEDS: Sodium Chloride 1 GM TAB PO SCH ×3 (07:39→20:40)
[2020-11-21] MEDS ORDERED: Tolvaptan 15 MG TAB PO SCH (10:30)
[2020-11-21] MEDS: Zolpidem Tartrate 5 MG TAB PO PRN (20:40)
[2020-11-22 04:25] LABS: #Eosinphils 0.1 10x3/uL (0.0-0.5); #Monocytes 0.5 10x3/uL (0.0-1.1); #Neutrophils 5.1 10x3/uL (1.5-8.4); %Basophils 0.4 % (0.0-2.0); %Eosinophils 1.2 % (0.0-6.0); %Lymphocytes 21.9 % (18.0-47.0); %Monocytes 6.5 % (0.0-10.0); %Neutrophils 69.5 % (40.0-75.0); Hemoglobin 10.8 g/dL (13.5-17.5); Mean Corpuscular HGB CONC 33.1 g/dL (32.0-36.0); Mean Corpuscular Hemoglobin 27.6 pg (27.0-33.0); Mean Corpuscular Volume 83.4 fl (81.2-95.1); Mean Platelet Volume 8.7 fl (7.4-10.4); Platelet Count 416 10x3/uL (150-450); RBC Distribution Width 15.5 % (11.5-14.5); Red Blood Cell (RBC) Count 3.91 10x6/uL (4.32-5.72); White Blood Cell (WBC) Count 7.4 10x3/uL (3.5-10.5)
[2020-11-22 04:39] LABS: Anion Gap 16 mmol/L (10-20)
[2020-11-22 05:01] LABS: BUN (Urea Nitrogen) 4 mg/dL (8.4-25.7); Calc. Creatinine Clearance 130 mL/min (70-130); Calcium 10.1 mg/dL (7.8-10.44); Carbon Dioxide 18 mmol/L (22-29); Chloride 107 mmol/L (98-107); Glucose 125 mg/dL (70-105); Sodium 137 mmol/L (136-145)
[2020-11-22] MEDS: Folic Acid 1 MG TAB PO SCH (08:56)
[2020-11-22] MEDS: Thiamine 100 MG TAB PO SCH (08:57)
[2020-11-22] MEDS: Enoxaparin Sodium 40 MG/0.4 ML SYRINGE SC SCH (08:57)
[2020-11-22] MEDS: Multivitamin W/ Minerals 1 TAB PO SCH (08:57)
[2020-11-22] MEDS: Cyanocobalamin (Vitamin B-12) 1,000 MCG TAB PO SCH (08:57)
[2020-11-22] MEDS: Amlodipine 5 MG TAB PO SCH (09:02)
[2020-11-22] MEDS: Triamterene/Hydrochlorothiazide 37.5 mg/25 mg Tablet PO SCH (09:07)
[2020-11-22] MEDS: Dextrose 5% in Water 1,000 ML IV SCH ×2 (09:53→17:34)
[2020-11-22] MEDS: HYDROcodone/Acetaminophen 5/325 mg Tablet PO PRN ×2 (12:32→19:50)
[2020-11-22 16:30] LABS: Anion Gap 16 mmol/L (10-20); BUN (Urea Nitrogen) 4 mg/dL (8.4-25.7); Calc. Creatinine Clearance 132 mL/min (70-130); Calcium 10.4 mg/dL (7.8-10.44); Carbon Dioxide 21 mmol/L (22-29); Chloride 100 mmol/L (98-107); Glucose 101 mg/dL (70-105); Potassium 3.9 mmol/L (3.5-5.1); Sodium 133 mmol/L (136-145)
[2020-11-22] MEDS: Zolpidem Tartrate 5 MG TAB PO PRN (20:55)
[2020-11-23] MEDS: HYDROcodone/Acetaminophen 5/325 mg Tablet PO PRN ×2 (02:31→10:20)
[2020-11-23 05:20] LABS: Anion Gap 20 mmol/L (10-20); BUN (Urea Nitrogen) 6 mg/dL (8.4-25.7); Calc. Creatinine Clearance 125 mL/min (70-130); Calcium 10.2 mg/dL (7.8-10.44); Carbon Dioxide 15 mmol/L (22-29); Chloride 98 mmol/L (98-107); Glucose 112 mg/dL (70-105); Sodium 129 mmol/L (136-145)
[2020-11-23 05:32] LABS: Potassium 4.3 mmol/L (3.5-5.1)
[2020-11-23 08:28] VITALS: BP 154/87; TEMP 98.3
[2020-11-23] MEDS: Thiamine 100 MG TAB PO SCH (08:36)
[2020-11-23] MEDS: Amlodipine 5 MG TAB PO SCH (08:36)
[2020-11-23] MEDS: Multivitamin W/ Minerals 1 TAB PO SCH (08:36)
[2020-11-23] MEDS: Cyanocobalamin (Vitamin B-12) 1,000 MCG TAB PO SCH (08:36)
[2020-11-23] MEDS: Folic Acid 1 MG TAB PO SCH (08:36)
[2020-11-23] MEDS: Enoxaparin Sodium 40 MG/0.4 ML SYRINGE SC SCH (08:37)
[2020-11-23] MEDS: Triamterene/Hydrochlorothiazide 37.5 mg/25 mg Tablet PO SCH (08:39)
[2020-11-23] MEDS ORDERED: Sodium Chloride 1 GM TAB PO SCH (09:00)
== END 2020-11-23 10:50 | disposition home or self-care (01) | DRG 640 ==
LOC: CSHERS 19:01 → CSHTELE 20:37 → UNDOADMIN 23:06
PROVIDERS: ADMIT Student in an Organized Health Care Education/Training Program; ATTEND Internal Medicine
DX: E87.1 Hypo-osmolality and hyponatremia (principal); G93.41 Metabolic encephalopathy; E44.1 Mild protein-calorie malnutrition; E87.6 Hypokalemia; E83.42 Hypomagnesemia; Z68.26 Body mass index [BMI] 26.0-26.9, adult; D63.8 Anemia in other chronic diseases classified elsewhere; F10.10 Alcohol abuse, uncomplicated; K70.9 Alcoholic liver disease, unspecified; I10 Essential (primary) hypertension; Z20.822 Contact with and (suspected) exposure to COVID-19
CPT/HCPCS: 36415; 70450; 71045; 80048; 80053; 80306; 80307; 81003; 81015; 82570; 83605; 83690; 83735; 84100; 84300; 84484; 84550; 85025; 87040; 87086; 87635; 93005; 96374; J0360; J1650; J3475; U0003; U0005